=== PATIENT | female | born 1990 | race Caucasian/White ===

== ENCOUNTER 2016-07-11 22:30 | Emergency (ER) | payer OTHER ==
[~2016-07-11 22:30] MED LIST: ALBUTEROL17 GM INH; AMOXICILLIN875 MG PO; BACTRIM 400-801 TA1 PO; BACTRIM DS TABL1 TA2; CALCIUM 500 +1 EAC3 PO; CIPRO PO; CLARITIN10 M1 PO; FLAGYL PO; IBUPROFEN800 MG PO; KEFLEX500 M1 PO; LEVO-T25 MCG; LEVOXYL200 MC1 PO; LORTAB 7.51 TAB PO; MACROBID100 MG PO; NEXPLANON68 MG SQ; NO MEDICATIONS; PAIN RELIEF325 MG PO; PHENERGAN25 M1 PO; PREDNISONE50 MG PO; PYRIDIUM PO; ROBAXIN500 MG; ROBAXIN500 MG PO; ROBITUSSIN A-C10 ML PO; SYNTHROID0.05 MG PO; TESSALON200 MG PO; TYLENOL #3 PO; VICODIN PO; VOLTAREN50 MG PO; VOLTAREN75 MG PO
[2016-08-16] MEDS ORDERED: LEVOXYL200 MC1 PO (12:00)
== END 2016-07-11 22:32 | disposition home or self-care (01) ==
LOC: CFTX 22:30
DX: S30.0XXA Contusion of lower back and pelvis, initial encounter (principal); F17.210 Nicotine dependence, cigarettes, uncomplicated; Z88.8 Allergy status to other drugs, medicaments and biological substances; W01.0XXA Fall on same level from slipping, tripping and stumbling without subsequent striking against object, initial encounter; Y92.098 Other place in other non-institutional residence as the place of occurrence of the external cause
CPT/HCPCS: 99283

== ENCOUNTER 2016-08-16 12:21 | Emergency (ER) | payer OTHER | END 2016-08-16 13:01 | disposition home or self-care (01) | LOC: SED 12:21 | DX: S05.02XA Injury of conjunctiva and corneal abrasion without foreign body, left eye, initial encounter (principal); F17.210 Nicotine dependence, cigarettes, uncomplicated; W22.8XXA Striking against or struck by other objects, initial encounter | CPT/HCPCS: 99283 ==

== ENCOUNTER 2016-12-27 22:09 | Emergency (ER) | payer OTHER ==
[~2016-12-27] VITALS: Ht 162.6 cm; Wt 54.4 kg
--- NOTE | ~2016-12-27 | CR181 ---
[facility] A Service of [facility] & [facility] RADIOLOGY TEXT RESULTS PATIENT: SHANNA CAMEJO LOCATION: [facility] : 88 UNIT #: [id number] AGE: [address]: Sanchez Armas MD SEX: F ORDER DR: [id number] [facility] [address] [place], [place] [address] [id number] E MR#: [id number] Acc #: [id number] NAME: SHANNA CAMEJO : 1990 SEX: F STUDY DATE/TIME: 12/28/2016 0:32 UNIT: [facility] ROOM: STUDY DESCRIPTION: CR Lumbar Spine 2 or 3 Views Attending Physician: Sanchez Armas M.D. Ordering Physician: Sanchez Armas M.D. Primary Care Physician: Krishna Matt Jr., M.D. MEDICAL IMAGING REPORT This report is preliminary unless electronic signature is present EXAM Lumbar spine, 12/28/2016. HISTORY 26-year-old female in the ED complaining of persistent low back pain after falling down steps about 6 months ago. TECHNIQUE Three-view lumbar spine series. FINDINGS The examination is negative. No acute or chronic fracture deformity. Lumbar disc spaces and lumbar vertebral alignment are within normal limits. IMPRESSION Negative lumbar spine series. Dictated by... Carlos Perez M.D. THIS IS AN ELECTRONICALLY VERIFIED REPORT Carlos Perez M.D. at 12/28/2016 4:46 PM DELMA/essence TD: 12/28/2016 11:22 JOB #: [id number] MEDICAL IMAGING REPORT Page 1 of 1 COPY
[2016-12-27 23:25] LABS: URINE SOURCE CLEAN CATCH
[2016-12-27 23:29] LABS: URINE APPEARANCE CLEAR; URINE BILIRUBIN NEG (NEG); URINE BLOOD NEG (NEG); URINE COLOR YELLOW; URINE GLUCOSE NEG (NEG); URINE KETONE NEG (NEG); URINE LEUKOCYTE ESTERASE NEG (NEG); URINE NITRATE NEG (NEG); URINE PH 5.5 (5-8); URINE PROTEIN 1+ (NEG); URINE SPECIFIC GRAVITY 1.025 (1.003-1.035); URINE UROBILINOGEN 0.2 MG/DL (NEG)
[2016-12-27 23:31] LABS: CULTURE INDICATED? YES; URBCS1 AUWI 0-2 /[HPF] (0-2); URINE BACTERIA AUWI 2+ (NEGATIVE); URINE SQUAMOUS EPITHELIAL CELL OCC /[HPF]
== END 2016-12-28 01:21 | disposition home or self-care (01) ==
LOC: CED 22:09
DX: S39.012A Strain of muscle, fascia and tendon of lower back, initial encounter (principal); F17.210 Nicotine dependence, cigarettes, uncomplicated; X58.XXXA Exposure to other specified factors, initial encounter
CPT/HCPCS: 72100; 81003; 84703; 87086; 96372; 99283; J1885